=== PATIENT | female | born 1970 | race Caucasian/White ===

== ENCOUNTER 2018-01-06 08:12 | Emergency (ER) | payer MEDICAID ==
[~2018-01-06] VITALS: Ht 157.5 cm; Wt 87.8 kg
[2018-01-06 08:48] VITALS: BP 118/64
== END 2018-01-06 08:48 | disposition home or self-care (01) ==
LOC: ED 08:12
DX: G47.00 Insomnia, unspecified (principal); M54.2 Cervicalgia

== ENCOUNTER 2018-01-06 18:30 | Emergency (ER) | payer MEDICAID ==
[~2018-01-06] VITALS: Ht 147.3 cm; Wt 88.9 kg
[2018-01-06 22:42] VITALS: BP 122/76
== END 2018-01-06 22:42 | disposition home or self-care (01) ==
LOC: ED 18:30
DX: F41.1 Generalized anxiety disorder (principal); G47.00 Insomnia, unspecified
CPT/HCPCS: 83880; Q0092

== ENCOUNTER 2018-01-11 05:07 | Emergency (ER) | payer MEDICAID ==
[~2018-01-11] VITALS: Ht 142.2 cm; Wt 87.8 kg
[2018-01-11 05:15] VITALS: Ht 142.2 cm; Wt 87.8 kg
[2018-01-11 05:44] VITALS: BP 115/83
== END 2018-01-11 05:44 | disposition home or self-care (01) ==
LOC: ED 05:07
DX: G47.00 Insomnia, unspecified (principal)

== ENCOUNTER 2018-02-22 23:42 | Emergency (ER) | payer MEDICAID ==
[~2018-02-22] VITALS: Ht 154.9 cm; Wt 86.2 kg
[2018-02-22 23:53] VITALS: Ht 154.9 cm; Wt 86.2 kg
[2018-02-23 04:58] VITALS: BP 139/88
== END 2018-02-23 04:58 | disposition home or self-care (01) ==
LOC: ED 23:42
DX: M54.41 Lumbago with sciatica, right side (principal)
CPT/HCPCS: J2270

== ENCOUNTER 2018-07-22 10:57 | Emergency (ER) | payer MEDICAID ==
[~2018-07-22] VITALS: Ht 154.9 cm; Wt 90.9 kg
[2018-07-22 11:15] VITALS: Ht 154.9 cm; Wt 90.9 kg
[2018-07-22 11:58] LABS: BASOPHIL % 0.5 % (0-2); PLATELET COUNT 222 x10^3mcL (130-400); RED CELL DISTRIBUTION WIDTH 14.2 % (11.5-14.5)
[2018-07-22 12:48] LABS: CALCIUM 8.1 mg/dL (8.5-10.1); CARBON DIOXIDE 29.2 mmol/L (21-32); CHLORIDE SERUM 103 mmol/L (98-107); CREATININE SERUM 0.5 mg/dL (0.6-1.0); GFR1 > 60 mL/min; GLUCOSE SERUM 89 mg/dL (74-106); POTASSIUM SERUM 3.8 mmol/L (3.5-5.1); SODIUM SERUM 139 mmol/L (136-145)
[2018-07-22 12:53] LABS: ALBUMIN 3.2 g/dL (3.4-5.0); ALKALINE PHOSPHATASE 82 U/L (46-116); ALT/SGPT 18 U/L (14-59); AST/SGOT 14 U/L (15-37); BILIRUBIN TOTAL 0.1 mg/dL (0.20-1.00); LIPASE 209 IU/L (73-393); TOTAL PROTEIN, SERUM 7.1 g/dL (6.4-8.2)
[2018-07-22 13:50] VITALS: BP 116/69
== END 2018-07-22 13:50 | disposition home or self-care (01) ==
LOC: ED 10:57
PROVIDERS: Emergency Medicine
DX: R10.31 Right lower quadrant pain (principal); R50.9 Fever, unspecified; E66.9 Obesity, unspecified; Z68.38 Body mass index [BMI] 38.0-38.9, adult
CPT/HCPCS: 36415

== ENCOUNTER 2018-09-24 15:27 | Emergency (ER) | payer MEDICAID ==
[~2018-09-24] VITALS: Ht 152.4 cm; Wt 90.7 kg
[2018-09-24 15:50] VITALS: Ht 152.4 cm; Wt 90.7 kg
[2018-09-24 17:24] LABS: CALCIUM 8.5 mg/dL (8.5-10.1); CARBON DIOXIDE 30.2 mmol/L (21-32); CHLORIDE SERUM 98 mmol/L (98-107); CREATININE SERUM 0.5 mg/dL (0.6-1.0); GFR1 > 60 mL/min; GLUCOSE SERUM 100 mg/dL (74-106); POTASSIUM SERUM 3.2 mmol/L (3.5-5.1); SODIUM SERUM 131 mmol/L (136-145)
[2018-09-24 17:28] LABS: ALBUMIN 3.4 g/dL (3.4-5.0); ALKALINE PHOSPHATASE 93 U/L (46-116); ALT/SGPT 22 U/L (14-59); AST/SGOT 15 U/L (15-37); BASOPHIL % 0.3 % (0-2); PLATELET COUNT 268 x10^3mcL (130-400); TOTAL PROTEIN, SERUM 7.5 g/dL (6.4-8.2)
[2018-09-24 17:35] LABS: RED CELL DISTRIBUTION WIDTH 14.8 % (11.5-14.5)
[2018-09-24 17:35] LABS: UA SPECIFIC GRAVITY <=1.005 (1.005-1.035); microscopic required? YES; urine erythrocyte 3+ (NEGATIVE)
[2018-09-24 18:45] VITALS: BP 132/74
== END 2018-09-24 18:45 | disposition home or self-care (01) ==
LOC: ED 15:27
PROVIDERS: Emergency Medicine
DX: R10.31 Right lower quadrant pain (principal); R10.11 Right upper quadrant pain; M54.5 Low back pain; Z98.890 Other specified postprocedural states
CPT/HCPCS: 36415; J1885